=== PATIENT | male | born 1945 | race Caucasian/White ===

== ENCOUNTER → 2019-12-20 13:34 | Outpatient (BNVA) | payer MEDICARE, OTHER, SELFPAY | PROVIDERS: Family Provider Nurse Practitioner Family; PCP Nurse Practitioner Family; Visit Provider Nurse Practitioner Family | DX: E87.1 Hypo-osmolality and hyponatremia (principal); J06.9 Acute upper respiratory infection, unspecified; J44.1 Chronic obstructive pulmonary disease with (acute) exacerbation | CPT/HCPCS: 84295 ==

== ENCOUNTER → 2020-01-08 10:55 | Outpatient (BNVA) | payer MEDICARE, OTHER, SELFPAY | PROVIDERS: Visit Provider Thoracic Surgery (Cardiothoracic Vascular Surgery) | DX: R06.00 Dyspnea, unspecified (principal) | CPT/HCPCS: 71046 ==

== ENCOUNTER → 2020-04-08 13:02 | Outpatient (BNVA) | payer MEDICARE, OTHER, SELFPAY | PROVIDERS: Visit Provider Internal Medicine | DX: E87.1 Hypo-osmolality and hyponatremia (principal) | CPT/HCPCS: 80053 ==

== ENCOUNTER → 2020-05-23 08:33 | Outpatient (BNVA) | payer MEDICARE, OTHER, SELFPAY | PROVIDERS: PCP Internal Medicine; Visit Provider Internal Medicine | DX: E87.1 Hypo-osmolality and hyponatremia (principal); E87.6 Hypokalemia | CPT/HCPCS: 80048 ==

== ENCOUNTER → 2021-01-22 16:13 | Outpatient (BNVA) | payer MEDICARE, OTHER, SELFPAY | PROVIDERS: PCP Internal Medicine; Visit Provider Internal Medicine | DX: E78.2 Mixed hyperlipidemia (principal); R30.0 Dysuria; I10 Essential (primary) hypertension; F17.200 Nicotine dependence, unspecified, uncomplicated; E87.1 Hypo-osmolality and hyponatremia; J43.1 Panlobular emphysema | CPT/HCPCS: 80053; 80061; 81003; 85025; G0103 ==

== ENCOUNTER → 2021-01-27 15:17 | Outpatient (BNVA) | payer MEDICARE, OTHER, SELFPAY | PROVIDERS: PCP Internal Medicine; Visit Provider Internal Medicine | DX: R31.9 Hematuria, unspecified (principal) | CPT/HCPCS: 81003; 87086 ==

== ENCOUNTER → 2021-06-24 14:17 | Outpatient (BNVA) | payer MEDICARE, OTHER, SELFPAY | PROVIDERS: PCP Internal Medicine; Visit Provider Nurse Practitioner Family | DX: J06.9 Acute upper respiratory infection, unspecified (principal); Z20.822 Contact with and (suspected) exposure to COVID-19 | CPT/HCPCS: 87635 ==

== ENCOUNTER 2021-06-30 12:02 | Outpatient (CLI) | payer MEDICARE, OTHER, SELFPAY ==
[2021-06-30 12:33] VITALS: BP 149/73; PULSE 82; RESP 22; TEMP 36.8; O2SAT 95
[2021-06-30 13:44] VITALS: BP 148/71; PULSE 88; O2SAT 94
[2021-06-30 14:49] VITALS: BP 164/84; PULSE 86; O2SAT 98
== END 2021-06-30 14:53 | disposition home or self-care (01) ==
LOC: OPS 12:05
PROVIDERS: PCP Internal Medicine; Visit Provider Nurse Practitioner Family
DX: U07.1 COVID-19 (principal)
CPT/HCPCS: 96365

== ENCOUNTER → 2022-02-08 14:28 | Outpatient (BNVA) | payer MEDICARE, OTHER, SELFPAY | PROVIDERS: PCP Internal Medicine; Visit Provider Nurse Practitioner Family | DX: I10 Essential (primary) hypertension (principal); E78.2 Mixed hyperlipidemia | CPT/HCPCS: 80053 ==

== ENCOUNTER 2022-08-09 08:16 | Outpatient (CLI) | payer MEDICARE, OTHER, SELFPAY ==
--- NOTE | 2022-08-09 08:15 | CT_ITS ---
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 Coronal and sagittal reformats are submitted with axial MIP series. All CT scans at [facility] use at least one of these dose optimization techniques: automated exposure control; mA and/or kV adjustment per patient size (includes targeted exams where dose is matched to clinical indication); or iterativ e reconstruction. DLP: 85.18 mGy.cm DIvol: Mean CTDIvol: 1.60 (mGy) COMPARISON: 09/26/2019 Diagnostic quality: Satisfactory Lung Nodules: No pulmonary nodule or mass. Endobronchial soft tissue nodules are noted bilaterally bu t greatest in the distal RIGHT mainstem bronchus extending into the lower lobe bronchial tree. Simila r but less prominent findings noted on the LEFT. Lungs: Pleural thickening with scarring noted at the RIGHT lung base. This is in the area of previous ly described empyema and drainage. Bilateral mild traction bronchiectasis in the lower lung ruby. Heart: Normal size heart. Moderate coronary artery calcifications. No effusion. Other findings: Mild atherosclerosis aorta. Normal size pulmonary artery. Small hiatal hernia. No adr enal mass. Calcification in the splenic artery. Normal thoracic alignment. CT/CT lung screening [id number] IMPRESSION: LUNG-RADS: 4A-Probably Suspicious FOLLOW UP: 3 Month LDCT OTHER FINDINGS (S MODIFIER): None. Three-month low-dose CT follow-up recommended to reevaluate the bilateral endob ronchial nodules. I favor this is probably retained mucus in the bronchial tree which should change or resolved in 3 months.
== END 2022-08-09 08:17 | disposition home or self-care (01) ==
PROVIDERS: PCP Internal Medicine; Visit Provider Internal Medicine
DX: Z12.2 Encounter for screening for malignant neoplasm of respiratory organs (principal); F17.210 Nicotine dependence, cigarettes, uncomplicated
CPT/HCPCS: 71271

== ENCOUNTER 2022-12-16 15:18 | Outpatient (CLI) | payer MEDICARE, OTHER, SELFPAY ==
--- NOTE | 2022-12-16 | CT_ITS ---
WS: [id number] CT CHEST WITH INTRAVENOUS CONTRAST HISTORY: Follow-up nodules on recent CT, 08/09/2022. TECHNIQUE: Contiguous 5 mm axial imaging performed on the thorax. Coronal and sagittal reformats are submitted. All CT scans at [facility] use at least one of these dose optimization techniques: automated exposure control; mA and/or kV adjustment per patient size (includes targeted exams where dose is matched to clinical indication); or iterative reconstruction. CONTRAST: Omnipaque 350; 95 mL IV. DLP: 288.01 mGy.cm COMPARISON: Lung screening 08/09/[address] 09/26/2019 Lungs and central airway: Hyperexpanded lungs. Elevated RIGHT hemidiaphragm due to adjacent pleural t hickening and atelectasis. No pulmonary mass or nodule. No pneumonia. There is still a small amount o f persistent mucous in the RIGHT proximal bronchus. Change in configuration and amount. Resolution of the LEFT endobronchial nodules. Findings consistent with mucus retention. Pleura: Mild pleural thickening at the RIGHT lung base in the area of atelectasis. Heart and pericardium: Normal size heart with no pericardial effusion. Mediastinum and albin: No mediastinum or hilar adenopathy. Vessels: Atherosclerosis aorta. No aneurysm or dissection. Normal size pulmonary artery. Chest wall and lower neck: No soft tissue masses. Upper abdomen: Small hiatal hernia. Too small to characterize. Tiny hypodensities in the superior linda er are probably cysts. Spleen is normal size. LEFT adrenal mass measures 16 mm. Probably representing an adenoma. Hounsfield units for very low on the unenhanced CT from 08/09/2022. 5 mm low-attenuation nodule near the proximal body of the pancreas stable since 2019. Osseous structures: No destructive bone lesions. CT/CT chest w con* [id number] IMPRESSION: 1. Change in extent and position of the endobronchial soft tissue in the regan tem bronchi. Consistent with retained mucus secretions. Only a small amount of secretion remains on the RIGHT. 2. Chronic atelectasis and volume loss LEFT lung base. 3. Chronic emphysema.
[2022-12-16] MEDS: iohexol 350 mg/mL 500 mL Btl (per mL) IV (15:56)
[2022-12-16 16:00] LABS: Blood Urea Nitrogen 11 mg/dL (8-23)
== END 2022-12-16 15:19 | disposition home or self-care (01) ==
LOC: RAD 15:19
PROVIDERS: PCP Internal Medicine; Visit Provider Internal Medicine
DX: R91.8 Other nonspecific abnormal finding of lung field (principal); R91.1 Solitary pulmonary nodule; J98.11 Atelectasis; J43.9 Emphysema, unspecified
CPT/HCPCS: 71260; 82565; 84520; Q9967

== ENCOUNTER 2023-02-15 14:09 | Outpatient (CLI) | payer MEDICARE, OTHER, SELFPAY ==
--- NOTE | 2023-02-15 14:21 | CT_ITS ---
WS: [id number] CT HEAD TECHNIQUE: Noncontrast CT of the head obtained from the skullbase to the vertex. CLINICAL INFORMATION: MEMORY LOSS COMPARISON: None. DLP: 1072.[address] scans at [facility] use at least one of these dose optimization techniques: automated e xposure control; mA and/or kV adjustment per patient size (includes targeted exams where dose is matc hed to clinical indication); or iterative reconstruction. FINDINGS: No evidence of intracranial hemorrhage or mass effect. Ventricular system and basal cisterns are murray nt. Mild small vessel changes with moderate parenchymal volume loss worse in the frontal lobes. Fluid in the RIGHT frontal sinus and frontal ethmoidal recess compatible with sinusitis. Small retent ion cyst LEFT posterior ethmoid air cell. Mastoid air cells well aerated. Vascular calcification. CT/CT head wo con* [id number] IMPRESSION: 1. No evidence of intracranial hemorrhage or mass effect. 2. Mild small vessel changes with moderate parenchymal volume loss. 3. RIGHT frontal and frontal ethmoidal sinusitis. 4. Vascular calcification. 5. No acute intracranial findings.
== END 2023-02-15 14:10 | disposition home or self-care (01) ==
LOC: RAD 14:10
PROVIDERS: PCP Internal Medicine; Visit Provider Internal Medicine
DX: R41.3 Other amnesia (principal); J32.8 Other chronic sinusitis
CPT/HCPCS: 70450

== ENCOUNTER → 2023-07-19 13:52 | Outpatient (BNVA) | payer MEDICARE, OTHER, SELFPAY | PROVIDERS: PCP Internal Medicine; Visit Provider Nurse Practitioner Family | DX: D48.5 Neoplasm of uncertain behavior of skin (principal); L57.0 Actinic keratosis; L72.0 Epidermal cyst; L85.3 Xerosis cutis; Z85.828 Personal history of other malignant neoplasm of skin; L57.8 Other skin changes due to chronic exposure to nonionizing radiation; L82.1 Other seborrheic keratosis | CPT/HCPCS: 11102; 17000; 17003; 99213 ==

== ENCOUNTER → 2023-08-02 09:19 | Outpatient (BNVA) | payer MEDICARE, OTHER, SELFPAY | PROVIDERS: PCP Internal Medicine; Visit Provider Dermatology | DX: C44.319 Basal cell carcinoma of skin of other parts of face (principal) | CPT/HCPCS: 13132; 17311; 17312 ==

== ENCOUNTER → 2023-08-12 10:35 | Outpatient (BNVA) | payer MEDICARE, OTHER, SELFPAY | PROVIDERS: PCP Internal Medicine; Visit Provider Dermatology | DX: Z48.02 Encounter for removal of sutures (principal) | CPT/HCPCS: 99212 ==

== ENCOUNTER → 2023-11-18 08:31 | Outpatient (BNVA) | payer MEDICARE, OTHER, SELFPAY | PROVIDERS: PCP Internal Medicine; Visit Provider Nurse Practitioner Family | DX: Z85.828 Personal history of other malignant neoplasm of skin (principal); S50.902A Unspecified superficial injury of left elbow, initial encounter; X58.XXXA Exposure to other specified factors, initial encounter; L85.3 Xerosis cutis; D22.4 Melanocytic nevi of scalp and neck; L57.8 Other skin changes due to chronic exposure to nonionizing radiation; L81.4 Other melanin hyperpigmentation | CPT/HCPCS: 99213 ==

== ENCOUNTER → 2024-04-12 13:25 | Outpatient (BNVA) | payer MEDICARE, OTHER, SELFPAY | PROVIDERS: PCP Internal Medicine; Visit Provider Nurse Practitioner Family | DX: L85.3 Xerosis cutis (principal); D22.5 Melanocytic nevi of trunk; L57.8 Other skin changes due to chronic exposure to nonionizing radiation; L81.4 Other melanin hyperpigmentation; L82.1 Other seborrheic keratosis; L57.0 Actinic keratosis; L72.0 Epidermal cyst; Z85.828 Personal history of other malignant neoplasm of skin | CPT/HCPCS: 17000; 99213 ==

== ENCOUNTER → 2024-10-16 13:30 | Outpatient (BNVA) | payer MEDICARE, OTHER, SELFPAY | PROVIDERS: PCP Internal Medicine; Visit Provider Nurse Practitioner Family | DX: L57.8 Other skin changes due to chronic exposure to nonionizing radiation (principal); L81.4 Other melanin hyperpigmentation; L57.0 Actinic keratosis | CPT/HCPCS: 17000; 99213 ==